=== PATIENT | male | born 1950 | race American Indian/Alaskan Native ===

== ENCOUNTER 2016-07-24 06:30 | Day surgery (SDC) | payer MEDICARE ==
[~2016-07-24 06:30] MED LIST: ANCEF/STERILE WATER 2 GM/20 ML 20 ML IV NR; NACL 0.9% 1000 ML 1,000 ML IV SCH
[2016-07-24 07:26] LABS: Basophils % (Auto) 0.7 % (0.0-1.8); Hematocrit 25.6 % (35.5-45.6); Hemoglobin 8.1 gm/dl (11.8-15.2); Mean Corpuscular HGB Conc 32 % (32-34); Mean Corpuscular Volume 73 fl (84-94); Red Blood Count 3.49 M/mm3 (3.65-5.03); Red Cell Distribution Width 17.8 % (13.2-15.2); White Blood Count 5.2 K/mm3 (4.5-11.0)
[2016-07-24 07:30] LABS: Mean Corpuscular Hemoglobin 23 pg (28-32)
[2016-07-24 07:32] LABS: BUN/Creatinine Ratio 47.05; Chloride 101.2 mmol/L (98-107); Potassium 4.1 mmol/L (3.6-5.0)
[2016-07-24 07:39] LABS: INR 2.02 (0.87-1.13)
[2016-07-24 07:40] LABS: Partial Thromboplastin Time 53.5 Sec. (24.2-36.6)
[2016-07-24] MEDS ORDERED: D50W (25GM) IV ONE (08:16)
[2016-07-24 08:29] LABS: Platelet Count 130 K/mm3 (140-440)
[2016-07-24] MEDS ORDERED: HEPARIN/NS 5000 UNIT/500ML(CATH LAB) 1,000 ML IR ONE (09:40)
[2016-07-24] MEDS ORDERED: WATER FOR INJ (PF) 20 ML ONE (09:41)
[2016-07-24] MEDS ORDERED: ANCEF/STERILE WATER 2 GM/20 ML 20 ML IV ONE (09:41)
[2016-07-24] MEDS ORDERED: CATHFLO ONE (09:41)
[2016-07-24] MEDS: BENADRYL ONE ×2 (10:00→10:55)
[2016-07-24] MEDS ORDERED: XYLOCAINE 2% INFILTRATI ONE (10:11)
[2016-07-24] MEDS: VERSED ONE ×5 (10:25→12:43)
[2016-07-24] MEDS: SUBLIMAZE ONE ×4 (10:25→13:17)
[2016-07-24] MEDS: XYLOCAINE 2% INFILTRATI ONE ×2 (10:35→10:36)
[2016-07-24] MEDS: HEPARIN 10,000 UNITS/10 ML ONE ×2 (11:50→13:03)
[2016-07-24] MEDS ORDERED: HEPARIN/NS 5000 UNIT/500ML(CATH LAB) 500 ML IR ONE (12:59)
--- NOTE | 2016-07-24 13:37 | Short Stay Summary ---
Short Stay Documentation Date of service: 07/24/16 - History Principal diagnosis: IVC transection with thromboses fem/fem bypass H&P: obtained from office - Allergies and Medications Current Medications: Allergies IV CONTRAST Allergy (Severe, Uncoded 05/29/13 08:43) Unknown "RENAL SHUT DOWN" Home Medications Medication Instructions Recorded Confirmed Last Taken Type Allopurinol [Zyloprim] 300 mg PO QDAY 05/29/13 07/24/16 07/24/16 History 300mg Furosemide [Lasix] 80 mg PO BID 05/29/13 07/24/16 07/23/16 History 80mg Losartan [Cozaar] 100 mg PO DAILY 05/29/13 07/24/16 07/24/16 History 100mg Metoprolol [Lopressor TAB] 25 mg PO DAILY 05/29/13 07/24/16 07/23/16 History 25mg Nateglinide [Starlix] 120 mg PO DAILY 05/29/13 07/24/16 07/23/16 History 120mg Cholecalciferol (Vitamin D3) 2,000 units PO DAILY 01/04/14 07/24/16 07/24/16 History [Vitamin D3] 2000units Rivaroxaban [Xarelto] 15 mg PO DAILY 01/04/14 07/24/16 07/23/16 History 15mg glipiZIDE [Glipizide ER] 10 mg PO DAILY 01/04/14 07/24/16 07/23/16 History 10mg Dulaglutide [Trulicity] 1.5 mg SQ 1XW 06/01/16 07/24/16 07/18/16 History 4.5mg Gabapentin 100 mg PO DAILY 06/01/16 07/24/16 07/23/16 History 100mg Spironolactone Tab [Aldactone Tab] 12.5 mg PO AMHY 06/01/16 07/24/16 07/24/16 History 12.5mg Ferrous Gluconate [Ferrous 324 mg PO DAILY 07/24/16 07/24/16 07/24/16 History Gluconate] 324mg Active Medications Cefazolin Sodium (Ancef/Sterile Water 2 Gm/20 Ml) 20 mls @ 80 mls/hr IV PREOP NR PRN Reason: Protocol Stop: 07/24/16 23:59 Last Admin: 07/24/16 10:25 Dose: 20 mls Sodium Chloride (Nacl 0.9% 1000 Ml) 1,000 mls @ 75 mls/hr IV DIRECT CLAIR Last Admin: 07/24/16 07:37 Dose: 42 mls/hr - Brief post op/procedure progress note Date of procedure: 07/24/16 Pre-op diagnosis: vensou thrombus Post-op diagnosis: same Procedure: Thrombectomy, venoplasty Anesthesia: local Surgeon: LISA PEDRO Estimated blood loss: minimal Pathology: none Condition: stable - Disposition Condition at discharge: Good Disposition: DISCHARGED TO HOME OR SELFCARE Short Stay Discharge Plan Activity: advance as tolerated Weight Bearing Status: Weight Bear as Tolerated Diet: regular Wound: keep clean and dry, per your surgeon's advice
--- NOTE | 2016-07-24 14:08 | Operative Report ---
Operative Report Operative Report: EXAM: BILATERAL LOWER EXTREMITY VENOGRAM, VENOUS THROMBECTOMY, VENOPLASTY CLINICAL INDICATION: PATIENT WITH TRANSECTED IVC WHO UNDERWENT PLACEMENT OF A FEMORAL VEIN TO FEMORAL VEIN BYPASS GRAFT WHICH HAS SINCE THROMBOSED. DATE: 07/24/2016 PROCEDURE: Following an explanation of the risks, benefits and alternatives; written informed consent was obtained. The patient was brought to the angiographic suite and placed in supine position on the examination table. Initial ultrasound evaluation of his groins demonstrated patent superficial femoral veins. Bilateral groins were prepped and draped in the usual sterile fashion. Ultrasound was also used to identify the femoral-femoral bypass graft which was noted to be thrombosed. Bilateral AV fistulas were also present. The patient's bilateral groins were prepped and draped in the usual sterile fashion. 1% lidocaine was used for anesthesia. Under ultrasound guidance, the left superficial femoral vein was cannulated approximately using a 7 cm 18-gauge needle. A 0.018 guidewire was advanced centrally. The needle was removed and a micro-sheath placed. Digital subtraction venography was then performed through the micro-sheath for anatomic localization. A 0.035 guidewire was then advanced through the micro-sheath and the micro-sheath exchanged for a 5 Vincentian sheath. Venography performed to the 5 Vincentian sheath demonstrated numerous collaterals within the pelvis. The origin of the femoral-femoral I past graft is not identified. Multiple surgical clips are present within the groin. A variety of catheters and guidewires were utilized in an attempt to cannulate the origin of the femoral-femoral bypass graft without success. The right groin was accessed in a similar fashion as above and an additional 5 Vincentian sheath placed. Multiple attempts were used to cannulate the bypass graft from the right approach [place] without success. The patient's mid abdomen was prepped and draped in usual sterile fashion. 1% lidocaine was used for anesthesia. Under gauge needle was then advanced directly into the femoral-femoral bypass graft and an 018 guidewire was advanced through the bypass graft and snared and brought out the right groin sheath. An 018 [place] was then advanced over the guidewire to the micro-sheath insertion site and the guidewire was removed and reversed. The guidewire and catheter were then advanced through the into the left superficial femoral vein to document intravenous positioning. Injection of contrast throughout the graft demonstrated thrombus throughout the length of the graft. A 90% stenosis secondary to redundancy of the graft is present just distal to the left anastomosis. A 60% stenosis is present at the right graft anastomotic site. Venoplasty was then performed at these 2 stenoses using 6 mm x 40 mm balloon followed by an 8 mm x 40 mm balloon. The thrombus. Graft was then infused with 10 mg of TPA. Following a dwell time of 10 minutes, thrombectomy was performed using a Penumbra aspiration catheter. Post thrombectomy imaging demonstrated old residual clot which was then treated by sweeping the graft with a 6 mm balloon and admitted additional aspiration at the right anastomosis. Imaging performed following the conclusion of the procedure demonstrated recurrent redundancy in the patient's left graft just distal to the anastomosis. There is flow present throughout the graft. At this point, the catheters, guidewires and she's were removed and hemostasis achieved using manual compression. Compression dressings were then applied to both groins as well as the graft puncture site. Patient tolerated the procedure well. There were no immediate post procedure complications. Conscious sedation was performed under the guidance of radiologic nursing. Continuous cardiopulmonary monitoring was utilized. IMPRESSION: 1) Bilateral lower extremity venogram demonstrating thrombosed femoral-femoral bypass graft with a 90% stenosis secondary to redundancy just distal to the left anastomosis in a 60% stenosis at the right graft anastomotic site. 2) Mechanical thrombectomy as described. 3) Venoplasty with reduction of the right anastomotic stricture to less than 20%. There was reduction of the left anastomotic stricture however, given the patient's anatomy, the stricture may return and will need to be treated with stent placement. 4) The patient will return in one week for additional intervention including was embolization of his collaterals which extend through his testicles which are decreasing flow through the graft.
[2016-07-24 16:20] VITALS: BP 118/55
--- NOTE | 2016-07-27 08:14 | Vascular Lab Report ---
MISCELLANEOUS VESSEL IDENTIFICATION: COMMENTS ON THE SCAN: The left common femoral vein was identified and under real-time ultrasound guidance was cannulated. IMPRESSION: Successful ultrasound guided vein cannulation.
== END 2016-07-24 16:50 | disposition home or self-care (01) ==
LOC: OPU 06:30
PROVIDERS: ATTEND Radiology Diagnostic Radiology
DX: T82.868A Thrombosis due to vascular prosthetic devices, implants and grafts, initial encounter (principal); E11.9 Type 2 diabetes mellitus without complications; I48.91 Unspecified atrial fibrillation; I25.10 Atherosclerotic heart disease of native coronary artery without angina pectoris; I12.9 Hypertensive chronic kidney disease with stage 1 through stage 4 chronic kidney disease, or unspecified chronic kidney disease; M10.9 Gout, unspecified; F17.210 Nicotine dependence, cigarettes, uncomplicated; N18.3 Chronic kidney disease, stage 3 (moderate); Z98.890 Other specified postprocedural states
CPT/HCPCS: 36415; 37187; 37248; 75822; 76937; 80048; 82962; 85025; 85610; 85730; 96374; C1725; C1751; C1769; C1773; J0690; J1200; J1644; J2250; J2930; J2997; J3010; J7030; Q9967

== ENCOUNTER 2016-07-31 06:39 | Day surgery (SDC) | payer MEDICARE ==
[~2016-07-31 06:39] MED LIST changes: -NACL 0.9% 1000 ML 1,000 ML IV SCH
[2016-07-31 08:40] LABS: INR 1.98 (0.87-1.13)
[2016-07-31] MEDS: NACL 0.9% 1000 ML 1,000 ML IV SCH ×2 (08:40→09:30)
[2016-07-31 08:41] LABS: Partial Thromboplastin Time 49.2 Sec. (24.2-36.6)
[2016-07-31 08:44] LABS: Hematocrit 23.6 % (35.5-45.6); Hemoglobin 7.4 gm/dl (11.8-15.2); Mean Corpuscular HGB Conc 31 % (32-34); Mean Corpuscular Volume 73 fl (84-94); Platelet Count 150 K/mm3 (140-440); Red Blood Count 3.23 M/mm3 (3.65-5.03); Red Cell Distribution Width 17.6 % (13.2-15.2)
[2016-07-31 08:50] LABS: BUN/Creatinine Ratio 37.77; Calcium 8.8 mg/dL (8.4-10.2); Chloride 99.8 mmol/L (98-107); Mean Corpuscular Hemoglobin 23 pg (28-32); Potassium 5.9 mmol/L (3.6-5.0)
[2016-07-31] MEDS ORDERED: BENADRYL ONE (09:44)
[2016-07-31] MEDS ORDERED: ANCEF/STERILE WATER 2 GM/20 ML 20 ML IV ONE (09:45)
[2016-07-31] MEDS ORDERED: HEPARIN/NS 5000 UNIT/500ML(CATH LAB) 1,000 ML IR ONE (09:57)
[2016-07-31] MEDS ORDERED: VERSED ONE (09:57)
[2016-07-31] MEDS: SUBLIMAZE ONE ×2 (10:03→11:53)
[2016-07-31] MEDS: XYLOCAINE 1%/ EPI 1:100,000 INFILTRATI ONE ×2 (10:07→11:32)
[2016-07-31] MEDS: HEPARIN 10,000 UNITS/10 ML ONE ×2 (10:45→11:30)
[2016-07-31] MEDS ORDERED: HEPARIN/NS 5000 UNIT/500ML(CATH LAB) 500 ML IR ONE (11:43)
[2016-07-31 15:02] VITALS: BP 127/53
--- NOTE | 2016-07-31 15:35 | Short Stay Summary ---
Short Stay Documentation Date of service: 07/31/16 - History Principal diagnosis: IVC occlusion H&P: obtained from office - Allergies and Medications Current Medications: Allergies IV CONTRAST Allergy (Severe, Uncoded 05/29/13 08:43) Unknown "RENAL SHUT DOWN" Home Medications Medication Instructions Recorded Confirmed Last Taken Type Allopurinol [Zyloprim] 300 mg PO QDAY 05/29/13 07/31/16 07/31/16 06:00 History Furosemide [Lasix] 80 mg PO BID 05/29/13 07/31/16 07/31/16 06:00 History Losartan [Cozaar] 100 mg PO DAILY 05/29/13 07/31/16 07/31/16 06:00 History Metoprolol [Lopressor TAB] 25 mg PO DAILY 05/29/13 07/31/16 07/31/16 06:00 History Nateglinide [Starlix] 120 mg PO DAILY 05/29/13 07/31/16 07/30/16 History Cholecalciferol (Vitamin D3) 2,000 units PO DAILY 01/04/14 07/31/16 07/30/16 History [Vitamin D3] Rivaroxaban [Xarelto] 15 mg PO DAILY 01/04/14 07/31/16 07/30/16 History glipiZIDE [Glipizide ER] 10 mg PO DAILY 01/04/14 07/31/16 07/30/16 History Dulaglutide [Trulicity] 1.5 mg SQ 1XW 06/01/16 07/24/16 07/25/16 History Gabapentin 100 mg PO DAILY 06/01/16 07/31/16 07/30/16 History Spironolactone Tab [Aldactone Tab] 12.5 mg PO DAILY 06/01/16 07/31/16 07/30/16 History Ferrous Gluconate [Ferrous 324 mg PO TID 07/24/16 07/31/16 07/31/16 History Gluconate] Active Medications Cefazolin Sodium (Ancef/Sterile Water 2 Gm/20 Ml) 20 mls @ 80 mls/hr IV PREOP NR PRN Reason: Protocol Stop: 07/31/16 23:00 Last Admin: 07/31/16 10:05 Dose: 20 mls Sodium Chloride (Nacl 0.9% 1000 Ml) 1,000 mls @ 42 mls/hr IV DIRECT CLAIR Last Admin: 07/31/16 09:30 Dose: 42 mls/hr - Brief post op/procedure progress note Date of procedure: 07/31/16 Pre-op diagnosis: IVC occlusion Post-op diagnosis: same Procedure: Venogram, thrombectomy, stent placement, embolization Anesthesia: local Surgeon: LISA PEDRO Estimated blood loss: minimal Pathology: none Condition: stable - Disposition Condition at discharge: Good Disposition: DISCHARGED TO HOME OR SELFCARE Short Stay Discharge Plan Activity: advance as tolerated Weight Bearing Status: Weight Bear as Tolerated Diet: regular Wound: keep clean and dry, per your surgeon's advice Follow up with: SUNI ALFARO MD, PHD [Primary Care Provider] - 7 Days Forms: Post Sedation D/C Instructions
--- NOTE | 2016-07-31 15:50 | Operative Report ---
Operative Report Operative Report: EXAM: VENOPLASTY WAS STENT PLACEMENT, VENOUS THROMBECTOMY, VENOUS EMBOLIZATION CLINICAL INDICATION: PATIENT WITH A HISTORY OF IVC OCCLUSION AND OCCLUDED FEMORAL-FEMORAL VENOUS BYPASS GRAFT WITH THE DEVELOPMENT OF GROSSLY ENLARGED SCROTAL VARICES DATE: 07/31/2016 PROCEDURE: Following an explanation of the risks, benefits and alternatives; written informed consent was obtained. The patient was brought to the angiographic suite and placed in supine position on the examination table. Initial evaluation of the bypass graft demonstrated that he did rethrombosed secondary to kinking in the proximal portion of the bypass graft. The patient' s lower abdomen bilateral groins and right neck were prepped and draped in the usual sterile fashion. 1% lidocaine was used for anesthesia. Under ultrasound guidance, right femoral vein was cannulated with a 7 cm 18- gauge needle. A 0.035 guidewire was advanced centrally under fluoroscopy. The needle was removed and a 5 [place] sheath placed. A variety of catheters and guidewires were utilized in an attempt to cannulate the bypass graft without success. Under ultrasound guidance, the femoral-femoral venous bypass graft was accessed towards the right anastomosis. A 0.018 guidewire was advanced into the bypass graft in the inner portion of a micro-sheath advanced over the guidewire. The 0.018 guidewire was exchanged for a V 18 guidewire which was advanced into the right femoral vein. The V 18 guidewire was secured using a 1.5 cm goosenecks snared and brought out through the sheath placed in the right femoral vein. A 4 [place] vertebral catheter was then advanced over the guidewire in an antegrade fashion and the V 18 guidewire removed and a 035 advantage guidewire placed through the vertebral catheter and advanced into the left femoral vein. The was removed and contrast injected through the vertebral catheter. This demonstrated occlusion of the graft with thrombus extending from the left anastomotic site to the right anastomotic site. Again noted is kinking in the proximal left graft. Thrombectomy of the graft was then performed using a Trerotola mechanical thrombectomy device. Post thrombectomy angioplasty was then performed using an 8 mm x 40 mm balloon insufflated to 20 dolores multiple locations throughout the graft. Given the residual kinking in the proximal aspect of the bypass graft, a decision was made to place a stent across this lesion. A 10 mm x 62 mm Wallstent was advanced and deployed across the proximal left graft. The stent was seated using the 8 mm balloons. Contrast was injected through the vertebral catheter which was again advanced to just distal to the anastomosis on the left side. There is flow throughout the graft however, was is present within the distal portion of the graft just proximal to the right venous anastomosis. This thrombus was excluded using a 10 mm x 60 mm InSeT Systemss self- expanding nitinol stent. The stent was seated using the 8 mm balloon. Post stent deployment imaging demonstrates brisk flow throughout the bypass graft. At this point, attention was turned to the patient's right neck. Ultrasound evaluation demonstrated a widely patent right internal jugular vein. The right internal jugular vein was accessed using a 7 cm 18-gauge needle. A 0.035 guidewire was advanced through the needle under fluoroscopy and advanced into the IVC under fluoroscopy. There is occlusion of the IVC just distal to the level of the renal veins. Serial dilation was performed and a 7 [place] by 45 cm sheath advanced over the guidewire with the tip of the sheath just to the renal veins. A C2 cobra catheter was then advanced through the sheath and used to selectively cannulate the left renal vein. The catheter was then it turned inferior and together the catheter and guidewire easily cannulated the dilated left gonadal vein. Contrast was injected throughout the left gonadal vein and multiple locations it is dilated to at least 13 mm this widest point. The guidewire and catheter were advanced although the scrotum. Digital subtraction angiography demonstrated enlarged scrotal varices. Just distal to the femoral head, the 2 each of which demonstrates significant reflux. A renegade hypo-microcatheter was advanced through a catheter and together the catheter microcatheter and guidewire were advanced to just distal to the branch point of the gonadal veins. Embolization was performed on each branch using Sanam coils. The patient was performed to venous stasis. Postembolization imaging demonstrated no residual flow into two embolized will veins. At this point, thirst, guidewires and sheaths were removed and hemostasis achieved at age access site using manual compression. Compression dressings were placed at the abscess site secondary to patient's in a seated bleed. The patient tolerated the procedure well. There were no immediate post procedure complications. Conscious sedation was performed under the guidance of radiologic nursing. Continuous cardiopulmonary monitoring was utilized. IMPRESSION: 1) Venogram of patient's femoral-femoral venous bypass graft demonstrating thrombus throughout the graft and recurrence of the stenosis in the proximal aspect of the graft secondary to tortuosity of the graft in the patient's extensive soft tissue. 2) Mechanical thrombectomy of the graft using [employer] mechanical thrombectomy device. 3) Venoplasty with stent placement in both proximal and distal aspects of the graft with residual 0% stenosis and brisk flow throughout the femoral-femoral venous bypass graft. 4) Embolization of 2 gonadal veins which have dilated and are causing massive scrotal swelling as described.
--- NOTE | 2016-08-03 08:11 | Vascular Lab Report ---
MISCELLANEOUS VESSEL IDENTIFICATION: COMMENTS ON THE SCAN: The right common femoral vein was identified and under real-time ultrasound guidance was cannulated. IMPRESSION: Successful ultrasound guided vein cannulation.
== END 2016-07-31 16:06 | disposition home or self-care (01) ==
LOC: OPU 06:39
PROVIDERS: ATTEND Radiology Diagnostic Radiology
DX: T82.868A Thrombosis due to vascular prosthetic devices, implants and grafts, initial encounter (principal); I87.2 Venous insufficiency (chronic) (peripheral); E11.22 Type 2 diabetes mellitus with diabetic chronic kidney disease; I12.9 Hypertensive chronic kidney disease with stage 1 through stage 4 chronic kidney disease, or unspecified chronic kidney disease; N18.3 Chronic kidney disease, stage 3 (moderate); I25.10 Atherosclerotic heart disease of native coronary artery without angina pectoris; I48.91 Unspecified atrial fibrillation; F17.210 Nicotine dependence, cigarettes, uncomplicated; Z83.3 Family history of diabetes mellitus; Z82.49 Family history of ischemic heart disease and other diseases of the circulatory system; Y83.8 Other surgical procedures as the cause of abnormal reaction of the patient, or of later complication, without mention of misadventure at the time of the procedure
CPT/HCPCS: 36012; 36415; 37187; 37238; 37241; 51702; 75820; 75831; 76937; 80048; 82962; 85027; 85610; 85730; 96374; 96375; C1725; C1757; C1769; C1773; C1876; C1887; C1894; J0690; J1200; J1644; J2250; J2930; J3010; J7030; Q9967

== ENCOUNTER 2017-02-05 10:36 | Day surgery (SDC) | payer MEDICARE ==
[~2017-02-05 10:36] MED LIST changes: +ANCEF/STERILE WATER 2 GM/20 ML 2 GM/20 ML SYRINGE IV NR; -ANCEF/STERILE WATER 2 GM/20 ML 20 ML IV NR; +NACL 0.9% 1000 ML 1,000 ML IV SCH
[2017-02-05 11:57] LABS: BUN/Creatinine Ratio 32.1; Calcium 9.8 mg/dL (8.4-10.2); Chloride 100.2 mmol/L (98-107); Potassium 4.4 mmol/L (3.6-5.0)
[2017-02-05] MEDS ORDERED: NACL 0.9% 1000 ML 1,000 ML ONE (12:01)
[2017-02-05 12:02] LABS: Hemoglobin 10.2 gm/dl (11.8-15.2); Mean Corpuscular HGB Conc 31 % (32-34); Mean Corpuscular Volume 74 fl (84-94); Red Blood Count 4.49 M/mm3 (3.65-5.03); Red Cell Distribution Width 18.1 % (13.2-15.2); White Blood Count 4.8 K/mm3 (4.5-11.0)
[2017-02-05 12:03] LABS: Mean Corpuscular Hemoglobin 23 pg (28-32)
[2017-02-05] MEDS ORDERED: ANCEF/STERILE WATER 2 GM/20 ML 2 GM/20 ML SYRINGE IV ONE (12:14)
[2017-02-05] MEDS ORDERED: HEPARIN/NS 5000 UNIT/500ML(CATH LAB) 500 ML IR ONE ×2 (12:14→13:33)
[2017-02-05] MEDS ORDERED: BENADRYL ONE (12:16)
[2017-02-05] MEDS ORDERED: VERSED ONE (12:17)
[2017-02-05] MEDS ORDERED: XYLOCAINE 2% INFILTRATI ONE (12:35)
[2017-02-05 12:50] LABS: Basophils % (Manual) 0 % (0.0-1.8); Blastocytes % (Manual) 0 %
[2017-02-05 12:51] LABS: Elliptocytes Few; Hypochromasia 1+; Ovalocytes Rare; Poikilocytosis 1+; Tear Drop Cells Rare
[2017-02-05 12:53] LABS: Diff Status Complete; Platelet Estimate Consistent w Auto; Target Cells Rare
[2017-02-05] MEDS: SUBLIMAZE ONE ×2 (12:57→13:32)
[2017-02-05 12:58] LABS: Platelet Count 159 K/mm3 (140-440)
[2017-02-05] MEDS ORDERED: HEPARIN 10,000 UNITS/10 ML ONE (13:35)
--- NOTE | 2017-02-05 15:15 | Short Stay Summary ---
Short Stay Documentation Date of service: 02/05/17 - History Principal diagnosis: IVC occlusion with symptomatic gonadal varices H&P: obtained from office - Allergies and Medications Current Medications: Allergies IV CONTRAST Allergy (Severe, Uncoded 05/29/13 08:43) Unknown "RENAL SHUT DOWN" Home Medications Medication Instructions Recorded Confirmed Last Taken Type Allopurinol [Zyloprim] 300 mg PO QDAY 05/29/13 07/31/16 07/31/16 06:00 History Furosemide [Lasix] 80 mg PO BID 05/29/13 07/31/16 07/31/16 06:00 History Losartan [Cozaar] 100 mg PO DAILY 05/29/13 07/31/16 07/31/16 06:00 History Metoprolol [Lopressor TAB] 25 mg PO DAILY 05/29/13 07/31/16 07/31/16 06:00 History Nateglinide [Starlix] 120 mg PO DAILY 05/29/13 07/31/16 07/30/16 History Cholecalciferol (Vitamin D3) 2,000 units PO DAILY 01/04/14 07/31/16 07/30/16 History [Vitamin D3] Rivaroxaban [Xarelto] 15 mg PO DAILY 01/04/14 07/31/16 07/30/16 History glipiZIDE [Glipizide ER] 10 mg PO DAILY 01/04/14 07/31/16 07/30/16 History Dulaglutide [Trulicity] 1.5 mg SQ 1XW 06/01/16 07/24/16 07/25/16 History Gabapentin 100 mg PO DAILY 06/01/16 07/31/16 07/30/16 History Spironolactone Tab [Aldactone Tab] 12.5 mg PO DAILY 06/01/16 07/31/16 07/30/16 History Ferrous Gluconate [Ferrous 324 mg PO TID 07/24/16 07/31/16 07/31/16 History Gluconate] Active Medications Cefazolin Sodium (Ancef/Sterile Water 2 Gm/20 Ml) 2 gm in 20 mls @ 80 mls/hr IV PREOP NR PRN Reason: Protocol Stop: 02/05/17 23:59 Sodium Chloride (Nacl 0.9% 1000 Ml) 1,000 mls @ 42 mls/hr IV DIRECT CLAIR Last Admin: 02/05/17 12:15 Dose: 42 mls/hr - Brief post op/procedure progress note Date of procedure: 02/05/17 Pre-op diagnosis: IVC occlusion with symptomatic gonadal varice Post-op diagnosis: same Procedure: EXAM: VENOGRAPHY OF THE PELVIS WITH EMBOLIZATION OF 2 SEPARATE GONADAL VEINS CLINICAL INDICATION: PATIENT WITH A HISTORY OF IVC TRANSECTION WITH A FEMORAL TO FEMORAL VENOUS BYPASS WITH FEMORAL AXILLARY VENOUS BYPASS WITH PERSISTENT EXTREME ENLARGEMENT OF HIS TESTICLES A CONDUIT FOR DRAINING HIS LEGS. DATE: 02/05/2017 PROCEDURE: Following an explanation of the risks, benefits and alternatives; written informed consent was obtained. The patient was brought to the angiographic suite and placed in supine position on the examination table. Initial ultrasound survey of the neck demonstrated the presence of multiple subcutaneous varicosities. The patient has recently been diagnosed with cirrhosis of the liver. Right internal jugular vein is widely patent. The patient's right neck was prepped and draped in the usual sterile fashion. 1% lidocaine was used for anesthesia. Under ultrasound guidance, the right internal jugular vein was cannulated with a 7 cm 18-gauge needle. A 0.035 guidewire was then advanced into the IVC under fluoroscopy and the needle removed and exchanged for a 6 [place] sheath. Vertebral catheter was then advanced over the guidewire and together the guidewire and catheter advanced into the IVC. There is transection of the IVC below the level of the renal veins. Venography was performed in the distal IVC at the level of the occlusion. There is no opacification of the right gonadal vein. The right renal vein and left renal vein are identified. Multiple attempts to cannulate the right gonadal vein from proximal approach were unsuccessful as is likely been transected with the IVC. The left gonadal vein was selectively cannulated and a 0.035 guidewire and catheter were advanced into the left gonadal vein under fluoroscopy. Guidewire and catheter were advanced distally to the level of the scrotum. Contrast was injected which demonstrates multiple persistent draining veins from the left gonadal vein. There are at least 3 left gonadal veins. Prior embolization coils are present. The patient has developed collateral flow around these veins in the areas in which they are embolized. Selective cannulation of the nonoccluded gonadal veins was then performed. Embolization of the gonadal veins was present performed to stasis using Sanam detachable coils deployed through a renegade hypo-microcatheter. Postembolization imaging demonstrated no residual flow through the left gonadal veins. The catheters, guidewires and she's were removed and hemostasis achieved in the right neck using manual compression. A sterile dressing was then applied. The patient tolerated the procedure well. There were no immediate post procedure complications. Conscious sedation was performed under the guidance of radiologic nursing. Continuous cardiopulmonary monitoring was utilized. IMPRESSION: 1) Pelvic venography demonstrating persistent left dilated gonadal veins greater than 1 cm diameter with recannulation of prior embolized veins. 2 ) Occlusion of the patient's left gonadal veins using Sanam detachable coils. 3 ) If there is not sufficient reduction in the patient's scrotal swelling, direct puncture of the patient's scrotal varicosities versus evaluation of his right internal iliac vein may be necessary. Short Stay Discharge Plan Follow up with: SUNI ALFARO MD, PHD [Primary Care Provider] - 7 Days
--- NOTE | 2017-02-05 15:16 | Vascular Lab Report ---
MISCELLANEOUS VESSEL IDENTIFICATION: COMMENTS ON THE SCAN: The right internal jugular vein was identified and under real-time ultrasound guidance was cannulated. IMPRESSION: Successful ultrasound guided vein cannulation.
[2017-02-05 15:58] VITALS: BP 135/64
== END 2017-02-05 16:01 | disposition home or self-care (01) ==
LOC: CATHLABREC 10:36
PROVIDERS: ATTEND Radiology Diagnostic Radiology
DX: I82.221 Chronic embolism and thrombosis of inferior vena cava (principal); I48.91 Unspecified atrial fibrillation; I25.10 Atherosclerotic heart disease of native coronary artery without angina pectoris; E11.40 Type 2 diabetes mellitus with diabetic neuropathy, unspecified; E11.22 Type 2 diabetes mellitus with diabetic chronic kidney disease; I12.9 Hypertensive chronic kidney disease with stage 1 through stage 4 chronic kidney disease, or unspecified chronic kidney disease; N18.3 Chronic kidney disease, stage 3 (moderate); M10.9 Gout, unspecified; Z87.19 Personal history of other diseases of the digestive system; Z95.5 Presence of coronary angioplasty implant and graft; Z98.890 Other specified postprocedural states; Z87.891 Personal history of nicotine dependence; Z95.0 Presence of cardiac pacemaker; Z91.041 Radiographic dye allergy status; Z79.899 Other long term (current) drug therapy; Z79.84 Long term (current) use of oral hypoglycemic drugs; Z83.3 Family history of diabetes mellitus; Z82.49 Family history of ischemic heart disease and other diseases of the circulatory system
CPT/HCPCS: 36012; 36415; 37241; 76937; 80048; 85007; 85025; C1751; C1769; C1887; J0690; J1200; J1644; J2250; J2930; J3010; J7030; Q9967